=== PATIENT | male | born 1960 | race African-American/Black ===

== ENCOUNTER 2017-01-24 00:50 | Emergency (ER) | payer MEDICAID ==
[~2017-01-24] VITALS: Ht 182.9 cm; Wt 70.0 kg
[2017-01-24 03:06] VITALS: BP 151/78
== END 2017-01-24 06:44 | disposition left against medical advice (07) ==
LOC: ER 00:50
DX: R51 Headache (principal); Z53.21 Procedure and treatment not carried out due to patient leaving prior to being seen by health care provider

== ENCOUNTER 2021-03-16 19:08 | Inpatient (IN) | payer MEDICAID ==
[~2021-03-16] VITALS: Ht 185.4 cm; Wt 68.0 kg
[~2021-03-16 19:08] MED LIST: APIX5TAB PO; DILT180C66 PO; FURO40TA5 PO
[2021-03-16] MEDS ORDERED: DILTIAZEM HCL 180MG CAPSULE CD 24HR PO ONE (19:45)
[2021-03-16] MEDS ORDERED: DILTIAZEM HCL 5MG/ML 5ML VIAL IV ONE ×2 (19:45→21:00)
[2021-03-16] MEDS ORDERED: SODIUM CHLORIDE 0.9% 1,000 ML IV ONE (19:45)
[2021-03-16 20:07] LABS: BASOPHILS % 0.3 % (0.0-2.0); EOSINOPHILS % 0.4 % (0.0-5.0); HEMOGLOBIN. 12.9 g/dL (14.0-18.0); LYMPHOCYTES % 13.4 % (20.0-50.0); MEAN CORPUSCULAR VOLUME 90.8 fL (80.0-94.0); MEAN PLATELET VOLUME 7.8 fl (7.4-10.4); MONOCYTES % 7.6 % (2.0-8.0); NEUTROPHILS % 78.3 % (40.0-76.0); PLATELET 199 x1000/uL (130-400); RED BLOOD CELL COUNT 4.29 mill/uL (4.7-6.1); RED CELL DISTRIBUTION WIDTH 15.8 % (11.6-14.6)
[2021-03-16 20:14] LABS: CHLORIDE 111 mEq/L (98-107)
[2021-03-16] MEDS ORDERED: APIXABAN 5 MG TABLET PO STA (20:56)
[2021-03-16] MEDS ORDERED: DILTIAZEM HCL 125 MG in DEXT 5% WATER 100 ML IV ONE (23:00)
[2021-03-16] MEDS ORDERED: DILTIAZEM HCL 125 MG in DEXT 5% WATER 100 ML IV NR (23:15)
[2021-03-16] MEDS ORDERED: ACETAMINOPHEN 325MG TABLET PO PRN (23:30)
[2021-03-16] MEDS ORDERED: MAGNESIUM/ALUMINUM HYDROXIDE/SIMETHICONE 30ML UDC PO PRN (23:30)
[2021-03-16] MEDS ORDERED: HYDROCODONE/ACETAMINOPHEN 5/325MG TABLET PO PRN (23:30)
[2021-03-16] MEDS ORDERED: CLONIDINE 0.1MG TABLET PO PRN (23:30)
[2021-03-17] MEDS: LISINOPRIL 20MG TABLET PO SCH ×2 (00:05→09:25)
[2021-03-17] MEDS ORDERED: FUROSEMIDE 40MG TABLET PO SCH (09:00)
[2021-03-17] MEDS ORDERED: DILTIAZEM HCL 30MG TABLET PO SCH (09:00)
[2021-03-17] MEDS: APIXABAN 5 MG TABLET PO SCH ×2 (09:24→17:10)
[2021-03-17] MEDS ORDERED: DILTIAZEM HCL 60MG TABLET PO SCH (12:30)
[2021-03-17] MEDS: DILTIAZEM HCL 60MG TABLET PO SCH ×2 (13:05→17:10)
[2021-03-17] MEDS: HYDRALAZINE HCL 50MG TABLET PO SCH ×2 (14:12→22:00)
[2021-03-17 15:51] LABS: *AMPHETAMINES SCREEN URINE NEGATIVE (NEGATIVE); *BARBITURATES SCREEN URINE NEGATIVE (NEGATIVE); *BENZODIAZEPINES SCREEN URINE NEGATIVE (NEGATIVE); *COCAINE SCREEN URINE NEGATIVE (NEGATIVE)
[2021-03-17 15:52] LABS: CANNABINOID URINE SCREEN PRESUMTIVE POSITIVE (NEGATIVE); METHADONE URINE SCREEN NEGATIVE (NEGATIVE); OPIATES URINE SCREEN NEGATIVE (NEGATIVE); PHENCYCLIDINE URINE SCREEN NEGATIVE (NEGATIVE)
[2021-03-17 16:34] VITALS: BP 138/88
[2021-03-17 17:04] VITALS: BP 138/88
[2021-03-17] MEDS: FUROSEMIDE 40MG TABLET PO SCH (17:10)
[2021-03-17 18:04] LABS: BASOPHILS % 0.7 % (0.0-2.0); EOSINOPHILS % 2.6 % (0.0-5.0); HEMATOCRIT. 38.8 % (42.0-52.0); HEMOGLOBIN. 12.8 g/dL (14.0-18.0); MEAN CORPUSCULAR VOLUME 90.4 fL (80.0-94.0); MEAN PLATELET VOLUME 7.9 fl (7.4-10.4); MONOCYTES % 7.6 % (2.0-8.0); NEUTROPHILS % 73.1 % (40.0-76.0); PLATELET 199 x1000/uL (130-400); RED BLOOD CELL COUNT 4.29 mill/uL (4.7-6.1)
[2021-03-17 18:11] LABS: CHLORIDE 104 mEq/L (98-107)
[2021-03-17 18:18] LABS: LDL CHOLESTEROL 78 mg/dL (5-100)
[2021-03-17 18:20] LABS: HDL CHOLESTEROL 56 mg/dL (40-59)
[2021-03-17 20:00] VITALS: BP 111/56
[2021-03-18] VITALS: BP 120/60
[2021-03-18] MEDS: DILTIAZEM HCL 60MG TABLET PO SCH ×2 (00:40→05:20)
[2021-03-18 04:00] VITALS: BP 144/94
[2021-03-18] MEDS: HYDRALAZINE HCL 50MG TABLET PO SCH (05:20)
[2021-03-18] MEDS: FUROSEMIDE 40MG TABLET PO SCH (05:20)
[2021-03-18 08:00] VITALS: BP 129/78
[2021-03-18] MEDS: APIXABAN 5 MG TABLET PO SCH (08:49)
[2021-03-18 09:46] VITALS: BP 129/78
== END 2021-03-18 11:00 | disposition home or self-care (01) | DRG 201 ==
LOC: ER 19:08 → MICUSO 22:54 → CANRESERV 03-17 14:22 → ENRESERV 03-17 14:22 → 7EST 03-17 14:34
PROVIDERS: ADMIT Hospitalist; ATTEND Hospitalist
DX: I48.19 Other persistent atrial fibrillation (principal); I50.23 Acute on chronic systolic (congestive) heart failure; N17.9 Acute kidney failure, unspecified; D68.59 Other primary thrombophilia; I42.0 Dilated cardiomyopathy; Z79.01 Long term (current) use of anticoagulants; J44.9 Chronic obstructive pulmonary disease, unspecified; R74.01 Elevation of levels of liver transaminase levels; F17.210 Nicotine dependence, cigarettes, uncomplicated; F14.10 Cocaine abuse, uncomplicated; I11.0 Hypertensive heart disease with heart failure; T50.2X6A Underdosing of carbonic-anhydrase inhibitors, benzothiadiazides and other diuretics, initial encounter; Y92.89 Other specified places as the place of occurrence of the external cause; Z82.49 Family history of ischemic heart disease and other diseases of the circulatory system; Z71.6 Tobacco abuse counseling; Z71.51 Drug abuse counseling and surveillance of drug abuser
CPT/HCPCS: 36415; 71045; 80053; 80061; 80305; 83880; 85025; 93005; 99291; J3490; J7030; J7060

== ENCOUNTER 2021-04-26 04:38 | Inpatient (IN) | payer MEDICAID ==
[~2021-04-26] VITALS: Ht 210.8 cm; Wt 71.2 kg
[2021-04-26] MEDS ORDERED: DILTIAZEM HCL 60MG TABLET PO ONE (05:45)
[2021-04-26] MEDS ORDERED: DILTIAZEM HCL 5MG/ML 5ML VIAL IV ONE (05:45)
[2021-04-26 06:10] LABS: CHLORIDE 111 mEq/L (98-107)
[2021-04-26 06:12] LABS: BASOPHILS % 0.6 % (0.0-2.0); EOSINOPHILS % 2.1 % (0.0-5.0); HEMATOCRIT. 37.3 % (42.0-52.0); HEMOGLOBIN. 12.2 g/dL (14.0-18.0); LYMPHOCYTES % 19.8 % (20.0-50.0); MEAN CORPUSCULAR HEMOGLOBIN 30.2 pg (28.0-32.0); MEAN CORPUSCULAR VOLUME 92.6 fL (80.0-94.0); MEAN PLATELET VOLUME 7.3 fl (7.4-10.4); MONOCYTES % 11.4 % (2.0-8.0); NEUTROPHILS % 66.1 % (40.0-76.0); PLATELET 182 x1000/uL (130-400); RED BLOOD CELL COUNT 4.03 mill/uL (4.7-6.1); RED CELL DISTRIBUTION WIDTH 15.1 % (11.6-14.6)
[2021-04-26] MEDS ORDERED: FUROSEMIDE 40MG/4ML VIAL IVP ONE (07:15)
[2021-04-26] MEDS ORDERED: CLONIDINE 0.1MG TABLET PO PRN (09:00)
[2021-04-26] MEDS ORDERED: GUAIFENESIN 200MG/10ML SUGAR FREE UDC PO PRN (09:00)
[2021-04-26] MEDS ORDERED: NA PHOS,M-B/NA PHOS,DI-BA ENEMA 118ML PR PRN (09:00)
[2021-04-26] MEDS ORDERED: DOCUSATE SODIUM 100MG CAPSULE PO PRN (09:00)
[2021-04-26] MEDS ORDERED: IPRATROPIUM/ALBUTEROL 0.5-3(2.5)MG/3ML NEB NEB PRN (09:00)
[2021-04-26] MEDS ORDERED: ONDANSETRON HCL 4MG/2ML INJ IV PRN (09:00)
[2021-04-26] MEDS ORDERED: ACETAMINOPHEN 325MG TABLET PO PRN (09:00)
[2021-04-26] MEDS ORDERED: DIPHENHYDRAMINE 50MG/ML VIAL IV PRN (09:00)
[2021-04-26] MEDS ORDERED: MAGNESIUM/ALUMINUM HYDROXIDE/SIMETHICONE 30ML UDC PO PRN (09:00)
[2021-04-26] MEDS ORDERED: LORAZEPAM 2MG/ML CPJ IV PRN (09:00)
[2021-04-26] MEDS ORDERED: MORPHINE SULFATE 2 MG/ML CPJ (NOT FOR IM USE) IV PRN (09:00)
[2021-04-26] MEDS ORDERED: NALOXONE HCL 0.4MG/ML VIAL IV PRN (09:15)
[2021-04-26] MEDS: FUROSEMIDE 40MG/4ML VIAL IV SCH ×2 (09:45→10:34)
[2021-04-26] MEDS: ENOXAPARIN 40MG/0.4ML SYR SUBCUT SCH ×2 (09:45→10:34)
[2021-04-26] MEDS ORDERED: HYDRALAZINE 20MG/ML VIAL IV ONE (10:45)
[2021-04-26] MEDS: DILTIAZEM HCL 60MG TABLET PO SCH ×2 (12:41→18:03)
[2021-04-26 14:00] VITALS: BP 126/93
[2021-04-26] MEDS: HYDRALAZINE HCL 50MG TABLET PO SCH ×2 (14:00→21:32)
[2021-04-26 15:39] LABS: BG BASE EXCESS 0.3 mmol/L (-2.0-2.0); BG CARBOXYHEMOGLOBIN 0.3 % (0.5-1.5); BG DEOXYHEMOGLOBIN 2.2 % (0.0-5.0); BG FRACTION INSPIRED OXYGEN 21; BG HCO3 ACT 20.6 mmol/L (22.0-26.0); BG METHEMOGLOBIN 0.3 % (0.0-1.5); BG OXYGEN SATURATION 97.8 % (92.0-98.5); BG OXYHEMOGLOBIN 97.2 % (94.0-97.0); BG PCO2 23.5 mmHg (35.0-45.0); BG PH 7.561 (7.350-7.450); BG SAMPLE SITE RIGHT RADIAL; BG TOTAL HEMOGLOBIN 14.3 g/dL (12.0-18.0); BG VENT MODE ROOM AIR
[2021-04-26] MEDS ORDERED: HYDR-4135 MT (17:48)
[2021-04-26] MEDS: APIXABAN 5 MG TABLET PO SCH (18:02)
[2021-04-26] MEDS ORDERED: PNEUMOCOCCAL 23-VAL P-SAC VAC 0.5 ML IM ONE (19:00)
[2021-04-26] MEDS ORDERED: INFLUENZA VACCINE 05/PF 0.5 ML SYRINGE IM ONE (19:00)
[2021-04-26 20:00] VITALS: BP 115/72
[2021-04-27 00:05] LABS: CLARITY URINE CLEAR (CLEAR); COLOR URINE YELLOW (YELLOW); KETONES URINE NEGATIVE (NEGATIVE); LEUKOCYTE ESTERASE URINE NEGATIVE (NEGATIVE); NITRITE URINE NEGATIVE (NEGATIVE); OCCULT BLOOD URINE NEGATIVE (NEGATIVE); PH URINE 7.5 (4.5-8.0); PROTEIN URINE NEGATIVE (NEGATIVE); SPECIFIC GRAVITY URINE 1.012 (1.005-1.030); UROBILINOGEN URINE 0.2 E.U./dL (0.2-1.0)
[2021-04-27 00:06] VITALS: BP 116/72
[2021-04-27 00:14] LABS: *AMPHETAMINES SCREEN URINE NEGATIVE (NEGATIVE); *BARBITURATES SCREEN URINE NEGATIVE (NEGATIVE); *BENZODIAZEPINES SCREEN URINE NEGATIVE (NEGATIVE)
[2021-04-27 00:15] LABS: *COCAINE SCREEN URINE PRESUMTIVE POSITIVE (NEGATIVE); METHADONE URINE SCREEN NEGATIVE (NEGATIVE); OPIATES URINE SCREEN NEGATIVE (NEGATIVE); PHENCYCLIDINE URINE SCREEN NEGATIVE (NEGATIVE)
[2021-04-27 00:16] LABS: CANNABINOID URINE SCREEN PRESUMTIVE POSITIVE (NEGATIVE)
[2021-04-27] MEDS: DILTIAZEM HCL 60MG TABLET PO SCH ×3 (00:29→12:03)
[2021-04-27 04:00] VITALS: BP 112/77
[2021-04-27] MEDS: HYDRALAZINE HCL 50MG TABLET PO SCH (06:10)
[2021-04-27 07:21] LABS: EOSINOPHILS % 3.8 % (0.0-5.0); HEMOGLOBIN. 12.3 g/dL (14.0-18.0); LYMPHOCYTES % 19.3 % (20.0-50.0); MEAN CORPUSCULAR HEMOGLOBIN 29.9 pg (28.0-32.0); MEAN PLATELET VOLUME 7.9 fl (7.4-10.4); MONOCYTES % 10.1 % (2.0-8.0); NEUTROPHILS % 65.8 % (40.0-76.0); PLATELET 189 x1000/uL (130-400); RED BLOOD CELL COUNT 4.11 mill/uL (4.7-6.1); RED CELL DISTRIBUTION WIDTH 14.7 % (11.6-14.6)
[2021-04-27 07:22] LABS: CHLORIDE 109 mEq/L (98-107)
[2021-04-27 07:38] LABS: LDL CHOLESTEROL 72 mg/dL (5-100)
[2021-04-27 07:40] LABS: HDL CHOLESTEROL 69 mg/dL (40-59)
[2021-04-27 08:00] VITALS: BP 138/77
[2021-04-27] MEDS: APIXABAN 5 MG TABLET PO SCH (08:18)
[2021-04-27 10:15] VITALS: BP 138/77
[2021-04-27 12:00] VITALS: BP 118/91
== END 2021-04-27 13:15 | disposition home or self-care (01) | DRG 133 ==
LOC: ER 04:38 → 8WST 08:39 → EDBEDREQTM 08:41 → EDBEDREQ 08:41 → ENRESERV 10:24
PROVIDERS: ADMIT Internal Medicine; ATTEND Internal Medicine
DX: J96.01 Acute respiratory failure with hypoxia (principal); N17.0 Acute kidney failure with tubular necrosis; I50.23 Acute on chronic systolic (congestive) heart failure; R65.10 Systemic inflammatory response syndrome (SIRS) of non-infectious origin without acute organ dysfunction; I42.9 Cardiomyopathy, unspecified; E44.1 Mild protein-calorie malnutrition; I13.0 Hypertensive heart and chronic kidney disease with heart failure and stage 1 through stage 4 chronic kidney disease, or unspecified chronic kidney disease; I48.92 Unspecified atrial flutter; J44.9 Chronic obstructive pulmonary disease, unspecified; Z79.01 Long term (current) use of anticoagulants; I48.91 Unspecified atrial fibrillation; F14.10 Cocaine abuse, uncomplicated; D64.9 Anemia, unspecified; R74.01 Elevation of levels of liver transaminase levels; Z20.822 Contact with and (suspected) exposure to COVID-19; I25.10 Atherosclerotic heart disease of native coronary artery without angina pectoris; N18.9 Chronic kidney disease, unspecified; Z72.0 Tobacco use; Z79.899 Other long term (current) drug therapy; Z71.51 Drug abuse counseling and surveillance of drug abuser; Z68.1 Body mass index [BMI] 19.9 or less, adult
CPT/HCPCS: 36415; 36600; 71045; 80053; 80061; 80305; 81003; 82375; 82805; 83880; 84484; 85025; 87426; 87804; 93005; 99291; J0360; J1650; J1940; J2060; J3490